=== PATIENT | female | born 1980 | race Caucasian/White ===

== ENCOUNTER 2016-08-19 14:24 | Inpatient (IN) | payer OTHER ==
--- NOTE | ~2016-08-19 | CT4 ---
[facility] A Service of [facility] & [facility] RADIOLOGY TEXT RESULTS PATIENT: ROSALIND NORMAN LOCATION: B 549-01 : [birth year] UNIT #: [id number] AGE: [address]: Rafael An MD SEX: F ORDER DR: [id number] [facility] [address] [place], [place] [address] [id number] I MR#: [id number] Acc #: [id number] NAME: ROSALIND NORMAN. : 1980 SEX: F STUDY DATE/TIME: 08/20/2016 7:23 UNIT: [facility] ROOM: [facility] STUDY DESCRIPTION: CT Abd and Pelv Wo Cont Attending Physician: Rafael An M.D. Ordering Physician: Rafael An M.D. Primary Care Physician: Dylan Chaparro MEDICAL IMAGING REPORT This report is preliminary unless electronic signature is present EXAM CT of the abdomen and pelvis without contrast media 08/20/2016 COMPARISON 08/19/2016 HISTORY Right-sided abdominal pain beginning yesterday. TECHNIQUE Transaxial imaging of the abdomen and pelvis was performed without contrast and compared directly to the patient's most recent scan of 08/19/2016. This CT exam was performed with one or more of the following radiation dose reduction techniques: automatic exposure control, adjustment of mA and/or kV according to patient size, and iterative reconstruction. FINDINGS There is some atelectasis in the lung bases. There are postsurgical changes in the upper abdomen under the right and left hemidiaphragms. The patient has had a previous cholecystectomy. Gallbladder is surgically absent. Spleen appears normal and the pancreas is normal. There are bilateral nonobstructing renal stones. There is a single stone on the right measuring 3 mm and a single stone on the left measuring 2 mm. In the lower pole there is a 3 mm stone on the left. No dilated or thickened loops of bowel are identified in the abdomen or pelvis. The appendix is normal. There is sigmoid diverticulosis without diverticulitis. Uterus is absent. There is a left adnexal cyst measuring 3.2 cm. The previous study showed a small stone within the bladder. It is no longer identified. There is no evidence of hydronephrosis or hydroureter on either the right or left. There are no ureteral stones on the right or left. [facility] A Service of [facility] RADIOLOGY TEXT RESULTS PATIENT: ROSALIND NORMAN LOCATION: [place] [address] : [birth year] UNIT #: [id number] AGE: [address]: Rafael An MD SEX: F ORDER DR: CONCLUSION 1. Postoperative changes of apparent diaphragmatic hernia repair. 2. Bilateral nonobstructing renal stones. 3. Postop changes of prior hysterectomy. 4. Stable left ovarian cyst measuring 3.2 cm. 5. The stone identified in the urinary bladder on the previous day's examination is no longer identified. There is no evidence of hydronephrosis and no evidence of ureteral stones. Dictated by... Devon Maciel M.D. THIS IS AN ELECTRONICALLY VERIFIED REPORT Devon Maciel M.D. at 08/21/2016 4:49 PM Swapnil TD: 08/20/2016 11:10 JOB #: [id number] MEDICAL IMAGING REPORT COPY
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
--- NOTE | ~2016-08-19 | US77 ---
[facility] A Service of [facility] RADIOLOGY TEXT RESULTS PATIENT: ROSALIND NORMAN LOCATION: [facility] : [birth year] UNIT #: [id number] AGE: [address]: Rafael An MD SEX: F ORDER DR: [id number] [facility] [address] [place], [place] [address] [id number] I MR#: [id number] Acc #: [id number] NAME: ROSALIND NORMAN : 1980 SEX: F STUDY DATE/TIME: 08/21/2016 9:42 UNIT: [facility] ROOM: [facility] STUDY DESCRIPTION: US Kidney Bilateral Complete Attending Physician: Rafael An M.D. Ordering Physician: Cj Clay M.D. Primary Care Physician: Dylan Chaparro MEDICAL IMAGING REPORT This report is preliminary unless electronic signature is present EXAM Bilateral renal ultrasound. DATE OF EXAM 08/21/2016 HISTORY Bilateral renal calculi on CT yesterday. FINDINGS Ultrasound examination of both kidneys demonstrates a tiny stone in the mid right kidney corresponding to a similar finding on CT yesterday. No left renal stones are identified to correspond with the very tiny left renal calculi on CT. No hydronephrosis. No renal mass, focal atrophy or perinephric fluid collection. The right kidney measures 10.2 cm in length and the left kidney measures approximate 9 cm in length. Survey of the urinary bladder is normal. IMPRESSION 1. No hydronephrosis. 2. Tiny nonobstructing stone in the mid right kidney. This corresponds to finding on CT yesterday. 3. Survey of the urinary bladder is normal. Dictated by... Maciej Davenport M.D. THIS IS AN ELECTRONICALLY VERIFIED REPORT Maciej Davenport M.D. at 08/22/2016 2:19 PM JEWEL/harrison [facility] A Service of [facility] RADIOLOGY TEXT RESULTS PATIENT: ROSALIND NORMAN [id number] : [birth year] UNIT #: [id number] AGE: [address]: Rafael An MD SEX: F ORDER DR: TD: 08/21/2016 15:38 JOB #: [id number] MEDICAL IMAGING REPORT COPY
--- NOTE | ~2016-08-19 | CR72 ---
[facility] A Service of [facility] & [facility] RADIOLOGY TEXT RESULTS PATIENT: ROSALIND NORMAN LOCATION: [place] [address] : [birth year] UNIT #: [id number] AGE: [address]: Rafael An MD SEX: F ORDER DR: [id number] [facility] [address] [place], [place] [address] [id number] I MR#: [id number] Acc #: [id number] NAME: ROSALIND NORMAN : 1980 SEX: F STUDY DATE/TIME: 08/20/2016 7:17 UNIT: [facility] ROOM: [facility] STUDY DESCRIPTION: CR Chest Single View Portable Attending Physician: Rafael An M.D. Primary Care Physician: Dylan Chaparro MEDICAL IMAGING REPORT This report is preliminary unless electronic signature is present EXAM Portable chest HISTORY Shortness of breath onset today. Central line placement. Comparison from 06/11/2009 TECHNIQUE Single view chest was obtained. FINDINGS A right internal jugular line is seen with the tip in the upper right atrium. No pneumothorax. The lungs are clear with normal vascular markings. The heart and mediastinum have a normal configuration. IMPRESSION No active pulmonary disease. Central line tip in good position in the upper right atrium. Dictated by... Cj West M.D. THIS IS AN ELECTRONICALLY VERIFIED REPORT Cj West M.D. at 08/20/2016 3:58 PM RLF/jaqueline TD: 08/20/2016 07:34 JOB #: [id number] MEDICAL IMAGING REPORT COPY
--- NOTE | ~2016-08-19 | CO ---
Unit #: [id number] #: [id number] Patient: ROSALIND NORMAN [id number] [facility] [address] [place], [place] [address] [id number] I MR#: [id number] NAME: ROSALIND NORMAN ROOM: 549 Age: 36 Sex: F Admission Date: 08/19/2016 : 1980 Attending Physician: Rafael An M.D. Primary Care Physician: Dylan Chaparro Consultation Date: 08/22/2016 CONSULTATION REPORT PRIMARY CARE PHYSICIAN Dr. Chaparro. REASON FOR CONSULTATION Questionable passing out episode. PATIENT IDENTIFICATION This is a 36-year-old, right-handed, white female, who was evaluated in room 549 at [facility]. SOURCE OF INFORMATION The patient and evaluation done by admitting team. PROBLEM LIST 1. History of seizures. She sees Dr. Arce. 2. Depression. 3. Chronic pain. 4. She is status post hysterectomy. 5. Hernia repair x2. 6. . 7. Tonsillectomy. 8. Abdominal surgery otherwise may be part of as above. 9. Cholecystectomy. 10. Tubal ligation and gastric bypass x2. HISTORY OF PRESENT ILLNESS This is a very pleasant, but rather stressed 36-year-old female, who has ureteral calculi and urinary tract infection, but she told the admitting team that she has been having since spells lately and some of them she may even have loss of bowel or bladder control and passed out. She stated that she feels drunk before those events happen and it was surprising for the team but when I found out that the patient already is seeing Dr. Arce and has already been placed on Neurontin and she saw him several months ago. These episodes occur where she reports feeling like drunk and then she says that her daughter reports that her one eye stares straight and other deviates to the right side and she has had reports that she would afterwards go to bed and wake up with loss of bowel or bladder control. She had 3 episodes like that and 2 episodes when she is sitting and realized that she is wet and has loss of bowel or bladder control, but she does not remember losing consciousness. Very difficult to corroborate the history, but she has had "generalized convulsive episodes in the past." Unit #: [id number] #: [id number] Patient: ROSALIND NORMAN She is here for other issues. No head injury. No trauma. No exposure to toxin. PAST MEDICAL HISTORY As discussed above. PAST SURGICAL HISTORY As discussed above. FAMILY HISTORY She says her sister has "back of the brain seizures." ALLERGIES None. HOME MEDICATIONS Neurontin she is taking 600 mg t.i.d., omeprazole 40 mg, Zanaflex 4 mg t.i.d., Cymbalta dose not known, doxepin 25 mg at bedtime. SOCIAL HISTORY She is single. She does have children. She denies tobacco, alcohol, or drug use. REVIEW OF SYSTEMS Detailed review of system was attempted. GENERAL: The patient does have pain. She denies any sleep problems, fever, chills, rigor, or sweats. HEENT: No headaches. No double vision, earache, runny nose, or sore throat. CARDIOVASCULAR: No chest pain, clubbing, cyanosis, orthopnea, or palpitation. PULMONARY: No shortness of air, cough, or expectoration. ABDOMEN: No nausea, vomiting, diarrhea, or constipation. She has lower abdominal pain, but may be a flank pain. GENITOURINARY: Flank pain and possibility of UTI. PSYCHIATRIC: Significant depression. NEUROLOGIC: Seizures. BACK: No back problems. No hematologic, dermatological, or endocrine problem otherwise known to me. PHYSICAL EXAMINATION VITAL SIGNS: Temperature 97.9, pulse 71, respirations 16, blood pressure 112/63, O2 saturations were 90% to 100% and 90 was only one time, blood pressure 112/63. Pain was anywhere from 7 to 9/10. Weight of 181 pounds. BMI was 30. NEUROLOGIC: The patient is awake. She is alert. She is oriented. She can name. She can follow commands. No right or left confusion. No finger agnosia. Cranial nerve examination demonstrates full carrillo of vision to confrontation. Eye movements are conjugate. I did not see any ptosis. I did not see any nystagmus. Extraocular movements are intact. Pupils are round, reactive to light, and accommodation. Sensation on the face and scalp are normal. Strength of muscles of facial expression normal. Hearing seemed to be intact bilaterally. Tongue was midline. Uvula was midline. Palate elevation was normal. Head turning and shoulder shrugs were unremarkable. Motor examination demonstrated normal bulk, tone. Strength was essentially 5/5. Sensory examination intact for Unit #: [id number] #: [id number] Patient: ROSALIND NORMAN soft touch and pain sensation. No extinction was seen. Romberg was not evaluated. Gait examination was deferred, but I saw her coming from the bathroom and she was fine. Reflexes, 1/4. Toes are equivocal. DIAGNOSTIC STUDIES IMAGING STUDIES: Reviewed. No recent brain MRIs are available. LABORATORY RESULTS: Reviewed. IMPRESSION A very interesting 36-year-old female, who has history of generalized convulsive type seizures, as per the patient she already sees a neurologist, Dr. Arce. She has had these very atypical episodes, but she has been losing bowel or bladder control. I had a very detailed discussion with the patient and I think she should be on a different antiepileptic medications and she has been having chronic pain. I would recommend that we put her on Lyrica. In the meantime, I will get MRI of the brain and MRA of head and neck because she has reported that her sister had "back of the brain seizure," so I just want to make sure there is no vertebrobasilar insufficiency. Whenever she is ready to go, she can be discharged to follow up with neurologist already established and if there is any other issue, please call me. I will follow up on that MRI and MRA. If it is okay, I will observe. If it is abnormal, then we will recommend further evaluation as would be deemed necessary. Call if any other questions. Dictated by... Hayden Rebolledo/killian TD: 08/24/2016 02:57 JOB #: [id number] CONSULTATION REPORT X Rachel Batres MD CONSULTATION REPORT
--- NOTE | ~2016-08-19 | HP ---
Unit #: [id number] #: [id number] Patient: ROSALIND ANNE [id number] [address] [place], [place] [address] [id number] I MR#: [id number] NAME: ROSALIND ANNE. ROOM: 240 Age: 36 Sex: F Admission Date: 08/19/2016 : 1980 Attending Physician: Rafael An M.D. HISTORY AND PHYSICAL CHIEF COMPLAINT Abdominal pain. HISTORY OF PRESENTING ILLNESS Ms. Anne is a 36-year-old female who presents today for a one-day history of abdominal pain. A CT scan was done which showed a punctate 1-2 mm left UVJ stone at the level of the ureteral orifice, questionable in the bladder. Urinalysis was performed which was nitrite positive; however, blood negative and trace leukocyte esterase. White blood cell count is 14.3. Serum creatinine is within normal limits. She is afebrile. Pain is controlled with Dilaudid. No fevers, nausea, or vomiting, and no chest pain or shortness of breath. PAST MEDICAL HISTORY 1. History of seizures. 2. Chronic pain. PAST SURGICAL HISTORY 1. Hysterectomy. 2. Cholecystectomy. SOCIAL HISTORY Denies illicit drug use. FAMILY HISTORY Noncontributory. ALLERGIES Reviewed in the chart and noted. REVIEW OF SYSTEMS A 12-point review of systems was performed and all negative except as mentioned in the History of Present Illness. PHYSICAL EXAMINATION VITAL SIGNS: Afebrile and vital signs stable. GENERAL: No apparent distress. HEENT: Normocephalic and atraumatic. ABDOMEN: Soft, nontender, and nondistended. EXTREMITIES: No clubbing, cyanosis, or edema. HEART: Regular rate and rhythm. CHEST: Nonlabored breathing on room air. SKIN: No skin rashes or lesions on exposed skin. Unit #: [id number] #: [id number] Patient: ROSALIND ANNE DIAGNOSTIC STUDIES LABORATORY: Reviewed in the chart and noted above. IMAGING: Reviewed in the chart and noted above. ASSESSMENT 1. Ureteral calculi. 2. Urinary tract infection. PLAN Patient may have passed stone. Will admit for Flomax and pain control. If fevers, will proceed with left stent placement. If intractable pain, nausea, or vomiting, will proceed with left stent placement. She did receive Rocephin in the ED, and we will continue this. No acute urologic intervention at this time, but low threshold for stent as she does have nitrite-positive urine, but this could be not related to an obstructing stone. There is no hydronephrosis on the CT scan, and stone may be in the bladder. Dictated by Hayden Garcia TD: 08/19/2016 20:32 JOB #: [id number] HISTORY AND PHYSICAL X YEMI CEVALLOS MD HISTORY AND PHYSICAL
--- NOTE | ~2016-08-19 | CT4 ---
[facility] A Service of [facility] RADIOLOGY TEXT RESULTS PATIENT: ROSALIND NORMAN LOCATION: [place] [address] : [birth year] UNIT #: [id number] AGE: [address]: Rafael An MD SEX: F ORDER DR: [id number] [facility] [address] [place], [place] [address] [id number] MR#: [id number] Acc #: [id number] NAME: ROSALIND NORMAN : 1980 SEX: F STUDY DATE/TIME: 08/19/2016 14:52 UNIT: [facility] ROOM: STUDY DESCRIPTION: CT Abd and Pelv Wo Cont Attending Physician: Stephen Avila D.O. Ordering Physician: Wilian Cowan M.D. Primary Care Physician: Dylan Chaparro MEDICAL IMAGING REPORT This report is preliminary unless electronic signature is present EXAM CT abdomen and pelvis without contrast INDICATION Right lower quadrant abdominal pain since this morning. PROCEDURE Noncontrast CT of the abdomen and pelvis. COMPARISON None TECHNIQUE This CT exam was performed with one or more of the following radiation dose reduction techniques: automatic exposure control, adjustment of mA and/or kV according to patient size, and iterative reconstruction. FINDINGS ABDOMEN WITHOUT CONTRAST: Included lung bases are clear. The liver, spleen, adrenal glands and pancreas have an unremarkable unenhanced appearance. Previous cholecystectomy. There are tiny nonobstructing calculi in both kidneys. There is a 1.0-2.0 mm calculus at the left UVJ. No hydronephrosis. The bowel loops are nondilated. Appendix is normal. PELVIS WITHOUT CONTRAST: Previous hysterectomy. 2.9 cm left adnexal cyst. No aggressive appearing bone lesion. IMPRESSION 1. Punctate 1.0-2.0 mm calculus at the left UVJ. No hydronephrosis. 2. Small nonobstructing calculi in both kidneys. 3. 2.9 cm cyst in the left adnexa probably representing a benign [facility] A Service [facility] RADIOLOGY TEXT RESULTS PATIENT: ROSALIND NORMAN [id number] : [birth year] UNIT #: [id number] AGE: [address]: Rafael An MD SEX: F ORDER DR: functional cyst. Dictated by... Marvin Arellano M.D. THIS IS AN ELECTRONICALLY VERIFIED REPORT Marvin Arellano M.D. at 08/21/2016 12:09 PM Jed TD: 08/19/2016 16:54 JOB #: [id number] MEDICAL IMAGING REPORT COPY
--- NOTE | ~2016-08-19 | CO ---
Unit #: [id number] #: [id number] Patient: ROSALIND NORMAN [id number] [address] [place], [place] [address] [id number] I MR#: [id number] NAME: ROSALIND NORMAN. ROOM: 549 Age: 36 Sex: F Admission Date: 08/19/2016 : 1980 Attending Physician: Rafael An M.D. Primary Care Physician: Dylan Chaparro Consultation Date: 08/19/2016 CONSULTATION REPORT REASON FOR CONSULTATION Critical care management. CHIEF COMPLAINT Flank pain. HISTORY OF PRESENT ILLNESS This patient basically is a 36-year-old female who came in with a complaint of flank pain. CT scan was done and showed 1 to 2 mm left UVJ stone at the level of the ureteral orifice, admitted with sepsis and urinary tract infection and was found to be hypotensive. Transferred to Intensive Care Unit. I am seeing the patient at bedside. She has been complaining of pain and nausea. Denies headache, blurry vision, mild shortness of breath. REVIEW OF SYSTEMS Positive pallor. No edema, no cyanosis, no jaundice. The rest as per History of Present Illness. The rest of the twelve point review of systems has been reviewed and is negative. PAST MEDICAL HISTORY 1. Seizures. 2. Chronic pain. SURGICAL HISTORY 1. Hysterectomy. 2. Cholecystectomy. SOCIAL HISTORY Denies drug abuse. FAMILY HISTORY None as per record. ALLERGIES No known drug allergies. PHYSICAL EXAMINATION VITAL SIGNS: Temperature 98, pulse 87, respirations 12, blood pressure 80/40. NEUROLOGICAL: Awake, alert, oriented. No neuro deficit. HEENT: PERRLA. NECK: Supple. No JVD. Unit #: [id number] #: [id number] Patient: ROSALIND NORMAN CHEST: Bilateral air entry, bilateral mild rhonchi. GI: Nontender, soft. Bowel sounds positive. EXTREMITIES: No edema. SKIN: No rashes, no ulcers. LYMPHATIC: No lymphadenopathy. DIAGNOSTIC STUDIES Labs and imaging have been reviewed. ASSESSMENT AND PLAN 1. Urosepsis. 2. Urinary tract infection. 3. Hypertension. 4. Possible chronic obstructive pulmonary disease. Plan is to admit the patient. Continue IV fluids. May need IV pressors. Continue broad spectrum IV antibiotics. Follow cultures. GI and DVT prophylaxis. Will continue to monitor in Critical Care Unit. Total critical care time is 55 minutes in direct critical care of this patient. Thank you very much for this consultation. Dictated by... Hayden Murray/azul TD: 08/23/2016 12:26 JOB #: [id number] CONSULTATION REPORT X Jose G Thorpe MD X CONSULTATION REPORT
[2016-08-19 13:32] LABS: BASOPHIL# 0.1 X10e3 (0-0.3); BASOPHIL% 0.6 % (0-2.5); EOSINOPHIL% 0.3 % (0.0-7.0); HEMOGLOBIN 13.7 gm/dL (12.0-16.0); LYMPHOCYTE# 2.3 X10e3 (1.0-3.5); LYMPHOCYTE% 16.1 % (17.0-45.0); MEAN CELL VOLUME 86.6 FL (83-96); MEAN CORPUSCULAR HEMOGLOBIN 28.2 PG (28-34); MEAN CORPUSCULAR HGB CONC 32.5 g/dL (30-36); MEAN PLATELET VOLUME 8.7 FL (6.5-11.5); MONOCYTE# 0.7 X10e3 (0-1.0); MONOCYTE% 5.1 % (3.0-12.0); NEUTROPHIL# 11.1 X10e3 (1.5-7.1); NEUTROPHIL% 77.9 % (40-75); PLATELET COUNT 340 X10e3 (140-420); RED BLOOD COUNT 4.85 X10e (3.90-5.30); RED CELL DISTRIBUTION WIDTH 16.2 % (11.0-15.5); WHITE BLOOD COUNT 14.3 X10e3 (4.0-10.5)
[2016-08-19 13:55] LABS: ALBUMIN SERUM 4.1 g/dL (3.5-5.0); ALKALINE PHOSPHATASE 85 U/L (32-92); ALT (SGPT) 38 U/L (10-40); AST (SGOT) 29 U/L (10-42); BILIRUBIN, DIRECT 0.1 mg/dL (0.0-0.2); BILIRUBIN,INDIRECT 0.6 mg/dL (0.0-0.9); BILIRUBIN,TOTAL 0.7 mg/dL (0.2-2.0); BLOOD UREA NITROGEN 11 mg/dL (9-23); BUN/CREATININE RATIO 12.22; CALCIUM SERUM 9.4 mg/dL (8.4-10.2); CARBON DIOXIDE 27 mmol/L (22-31); CHLORIDE 104 mmol/L (100-111); CREATININE SERUM 0.9 mg/dL (0.6-1.4); DIFF IND NO; GLOM FILT RATE Estimated ABOVE60 mL/min (>60); GLUCOSE FASTING 97 mg/dL (70-110); LIPASE 24 U/L (22-51); PROTEIN TOTAL SERUM 7.8 g/dL (6.0-8.3); SODIUM 140 mmol/L (135-145)
[~2016-08-19 14:24] MED LIST: AMOXICILLIN PO; DIAZEPAM PO; FLEXERIL PO; IBUPROFEN PO; METHADONE PO; PERCOCET7.5 PO; PHENERGAN PO; ULTRAM PO
[2016-08-19 15:12] LABS: URINE SOURCE CLEAN CATCH
[2016-08-19 15:27] LABS: URINE APPEARANCE CLOUDY; URINE BILIRUBIN NEG (NEG); URINE BLOOD NEG (NEG); URINE COLOR YELLOW; URINE GLUCOSE NEG (NEG); URINE KETONE NEG (NEG); URINE LEUKOCYTE ESTERASE TRACE (NEG); URINE NITRATE POS (NEG); URINE PROTEIN NEG (NEG); URINE SPECIFIC GRAVITY 1.014 (1.003-1.035); URINE UROBILINOGEN 0.2 MG/DL (NEG)
[2016-08-19 16:02] LABS: CULTURE INDICATED? YES; URBCS1 AUWI NEG /[HPF] (0-2); URINE BACTERIA AUWI 3+ (NEGATIVE); URINE SQUAMOUS EPITHELIAL CELL FEW /[HPF]
[2016-08-19] MEDS ORDERED: NEURONTIN600 MG PO (17:26)
[2016-08-19] MEDS ORDERED: ZANAFLEX4 M1 PO (17:27)
[2016-08-19] MEDS ORDERED: OMEPRAZOLE40 M1 PO (17:27)
[2016-08-19] MEDS ORDERED: CYMBALTA PO (17:28)
[2016-08-19] MEDS ORDERED: DOXEPIN HCL25 MG PO (17:28)
[2016-08-21 06:16] LABS: HEMATOCRIT 35.7 % (35.0-45.0); MEAN CORPUSCULAR HEMOGLOBIN 28.4 PG (28-34); MEAN CORPUSCULAR HGB CONC 32.6 g/dL (30-36); MEAN PLATELET VOLUME 8.8 FL (6.5-11.5); RED BLOOD COUNT 4.11 X10e (3.90-5.30)
[2016-08-21 06:25] LABS: HEMOGLOBIN 11.6 gm/dL (12.0-16.0)
[2016-08-21 07:17] LABS: BLOOD UREA NITROGEN 7 mg/dL (9-23); BUN/CREATININE RATIO 8.75; CALCIUM SERUM 8.9 mg/dL (8.4-10.2); CARBON DIOXIDE 28 mmol/L (22-31); CHLORIDE 104 mmol/L (100-111); CREATININE SERUM 0.8 mg/dL (0.6-1.4); GLOM FILT RATE Estimated ABOVE60 mL/min (>60); GLUCOSE FASTING 104 mg/dL (70-110); POTASSIUM 4.6 mmol/L (3.5-5.1); SODIUM 139 mmol/L (135-145)
[2016-08-23] MEDS ORDERED: LYRICA100 MG PO (14:55)
[2016-08-23] MEDS ORDERED: MACROBID100 MG PO (14:56)
[2016-08-23] MEDS ORDERED: PERCOCET5/325 PO (14:58)
== END 2016-08-23 19:01 | disposition home or self-care (01) | DRG 872 ==
LOC: CED 14:24 → CEDOF 16:56 → C2A 19:14 → CICCU2 08-20 03:35 → C5B 08-20 10:12
PROVIDERS: Emergency Medicine; Urology
DX: A41.9 Sepsis, unspecified organism (principal); N13.2 Hydronephrosis with renal and ureteral calculous obstruction; N39.0 Urinary tract infection, site not specified; F41.9 Anxiety disorder, unspecified; G40.909 Epilepsy, unspecified, not intractable, without status epilepticus; Z90.49 Acquired absence of other specified parts of digestive tract; Z90.710 Acquired absence of both cervix and uterus; B96.20 Unspecified Escherichia coli [E. coli] as the cause of diseases classified elsewhere
CPT/HCPCS: 71010; 74176; 76770; 80048; 80076; 81003; 83690; 85025; 85027; 87086; 87088; 87186; 94760; 96361; 96365; 96375; 99285; J0696; J1170; J2060; J2405; J2550